=== PATIENT | female | born 1980 | race Caucasian/White ===

== ENCOUNTER 2020-05-19 19:29 | Emergency (ER) | payer BC ==
--- NOTE | 2020-05-19 20:58 | ER Document Report ---
ED Medical Screen (RME) - General Chief Complaint: Lower Abdominal Pain Stated Complaint: LOWER LEFT ABDOMINAL PAIN Time Seen by Provider: 05/19/20 20:50 Mode of Arrival: Ambulatory Information source: Patient Notes: HPI; 39-year-old female past medical history significant for ovarian cysts presents to the emergency room complaining of left lower pelvic pain for the past 3 to 4 days. Denies any nausea, no vomiting, no urinary symptoms, no vaginal discharge. Has been taking BC powder without relief. PE: Alert and oriented x3. Mild distress noted. Lungs: Clear to auscultation without rales, rhonchi, wheezes. Heart: Regular rate and rhythm without murmurs, rubs, gallops. I have greeted and performed a rapid initial assessment of this patient. A comprehensive ED assessment and evaluation of the patient, analysis of test results and completion of the medical decision making process will be conducted by additional ED providers. I have specifically instructed the patient or fa gentry members with the patient to immediately return to any nursing staff should anything change in the patient's condition or with their chief complaint. TRAVEL OUTSIDE OF THE [place] IN LAST 30 DAYS: No - Related Data Allergies/Adverse Reactions: adhesive tape Allergy (Verified 05/19/20 20:49) Past Medical History - General Last Menstrual Period: few days ago - Social History Frequency of alcohol use: Occasional Drug Abuse: Marijuana Past Surgical History: Reports: Hx Tubal Ligation Physical Exam - Vital signs Vitals: Temp Pulse Resp BP Pulse Ox 98.3 F 84 16 135/76 H 99 05/19/20 19:53 05/19/20 19:53 05/19/20 19:53 05/19/20 19:53 05/19/20 19:53 Course - Vital Signs Vital signs: Temp Pulse Resp BP Pulse Ox 98.3 F 84 16 135/76 H 99 05/19/20 19:53 05/19/20 19:53 05/19/20 19:53 05/19/20 19:53 05/19/20 19:53
[2020-05-19 21:46] LABS: ABSOLUTE BASOPHILS # (AUTO) 0.1 10^3/uL (0.0-0.2); ABSOLUTE EOSINOPHILS # (AUTO) 0.1 10^3/uL (0.0-0.6); ABSOLUTE LYMPHOCYTES (AUTO) 2.6 10^3/uL (0.5-4.7); ABSOLUTE MONOCYTES (AUTO) 0.7 10^3/uL (0.1-1.4); ABSOLUTE NEUT (AUTO) 5.2 10^3/uL (1.7-8.2); BASOPHILS % (AUTO) 0.8 % (0-2); EOSINOPHILS % (AUTO) 0.8 % (0-6); HEMATOCRIT 41.1 % (36.0-47.0); HEMOGLOBIN 13.8 g/dL (12.0-15.5); LYMPHOCYTES % (AUTO) 29.8 % (13-45); MEAN CORPUSCULAR HEMOGLOBIN 27.7 pg (27.0-33.4); MEAN CORPUSCULAR HGB CONC 33.7 g/dL (32.0-36.0); MEAN CORPUSCULAR VOLUME 82 fl (80-97); PLATELET COUNT 320 10^3/uL (150-450); RED BLOOD COUNT 4.99 10^6/uL (3.72-5.28); RED CELL DISTRIBUTION WIDTH 14.5 % (11.5-14.0); SEGMENTED NEUTROPHILS % (AUTO) 60.6 % (42-78); TOTAL CELLS COUNTED % (AUTO) 100 %; WHITE BLOOD COUNT 8.6 10^3/uL (4.0-10.5)
[2020-05-19 21:58] LABS: APPEARANCE,URINE CLOUDY; BILIRUBIN,URINE NEGATIVE (NEGATIVE); CALCIUM OXALATE CRYSTALS,URINE MANY /HPF; COLOR,URINE YELLOW; GLUCOSE, URINE NEGATIVE (NEGATIVE); KETONES,URINE NEGATIVE (NEGATIVE); LEUKOCYTE ESTERASE,URINE LARGE (NEGATIVE); NITRITE,URINE NEGATIVE (NEGATIVE); PROTEIN,URINE 100 mg/dL (NEGATIVE); URINE SPECIFIC GRAVITY 1.028
--- NOTE | 2020-05-19 22:11 | RADIOLOGY REPORT (SQ) ---
EXAM DESCRIPTION: US PELVIS TRANSVAGINAL COMPLETED DATE/TME: 05/19/2020 20:55 CLINICAL HISTORY: 39 years, Female, pelvic pain COMPARISON: None. TECHNIQUE: Emergent pelvic ultrasound LIMITATIONS: None. FINDINGS: The uterus measures 9.4 x 5.8 x 4.9 cm, the myometrium is homogenous. The endometrium measures 6 mm in thickness. Small amount of fluid in the endocervical canal. The right ovary measures 3.4 x 2.5 x 2.9 cm, the left 3.4 x 2.5 x 2.2 cm. Arterial and venous flow to each ovary. Simple 2.0 x 1.6 cm cyst of the right ovary, likely a dominant follicle. No solid adnexal mass. No free fluid IMPRESSION: Simple 2 cm right ovarian cyst/follicle. This does not require follow-up. Small amount of fluid in the endocervical canal. Recommendations for f/u of ovarian anechoic simple cyst, simple cyst with single thin <3 mm septation, or focal calcification in wall of cyst (1): Pre-menopause: <= 5 cm No follow-up imaging recommended >5 cm - <=7 cm US f/u annually >7 cm Consider MR w/IVC or surgical evaluation Post-menopause (>=1 year from last menstrual period): <=3 cm No follow-up imaging recommended >3 cm - <=7 cm US f/u annually >7 cm Consider MR w/IVC or surgical evaluation (1) Recommendations based on 2010 SRU Consensus Conference Statement on the Management of Asymptomatic Ovarian and Other Adnexal Cysts Imaged at US: Radiology. 2009;256(3):940-50 copyright 2011 [employer]- All Rights Reserved
[2020-05-19 22:16] LABS: ALBUMIN 4.8 g/dL (3.5-5.0); ALKALINE PHOSPHATASE 70 U/L (38-126); ANION GAP 9 (5-19); ASPARTATE AMINO TRANSFERASE 25 U/L (14-36); BILIRUBIN,DIRECT 0.3 mg/dL (0.0-0.4); BILIRUBIN,TOTAL 0.3 mg/dL (0.2-1.3); BLOOD UREA NITROGEN 15 mg/dL (7-20); CALCIUM 9.9 mg/dL (8.4-10.2); CARBON DIOXIDE 28 mmol/L (22-30); CHLORIDE 104 mmol/L (98-107); GLUCOSE 95 mg/dL (75-110); POTASSIUM 4.5 mmol/L (3.6-5.0); TOTAL PROTEIN 8.1 g/dL (6.3-8.2)
[2020-05-20] MEDS ORDERED: KETOROLAC TROMETHAMINE 60 MG/2 ML SDV IM ONE (02:31)
--- NOTE | 2020-05-20 02:37 | ER Document Report ---
ED General - General Chief Complaint: Lower Abdominal Pain Stated Complaint: LOWER LEFT ABDOMINAL PAIN Time Seen by Provider: 05/19/20 20:50 Mode of Arrival: Ambulatory Notes: 39-year-old female with past medical history of ovarian cysts presenting today with 3 to 4 days of intermittent right and left lower quadrant pain. Her last period ended 5 days ago. It lasted for 2 weeks. She has a history of a tubal ligation. Pain does radiate to her lower back. She last had this pain a month ago and it was consistent with cysts. Her current pain is a constant dullness with intermittent sharp and stabbing. This is the same pain she experiences when she has ovarian cysts. She denies any fevers, chills, nausea, vaginal discharge, dysuria. TRAVEL OUTSIDE OF THE [place] IN LAST 30 DAYS: No - Related Data Allergies/Adverse Reactions: adhesive tape Allergy (Verified 05/19/20 20:49) Past Medical History - General Information source: Patient Last Menstrual Period: few days ago - Social History Smoking Status: Current Every Day Smoker Frequency of alcohol use: Occasional Drug Abuse: Marijuana Family History: Reviewed & Not Pertinent Patient has homicidal ideation: No Past Surgical History: Reports: Hx Tubal Ligation Review of Systems - Review of Systems Constitutional: No symptoms reported EENT: No symptoms reported Cardiovascular: No symptoms reported Respiratory: No symptoms reported Gastrointestinal: See HPI Genitourinary: No symptoms reported Female Genitourinary: No symptoms reported Musculoskeletal: Back pain Skin: No symptoms reported Hematologic/Lymphatic: No symptoms reported Neurological/Psychological: No symptoms reported Physical Exam - Vital signs Vitals: Temp Pulse Resp BP Pulse Ox 98.3 F 84 16 135/76 H 99 05/19/20 19:53 05/19/20 19:53 05/19/20 19:53 05/19/20 19:53 05/19/20 19:53 Interpretation: Normal - Notes Notes: Adult General: GENERAL: Alert, interacts well. No acute distress HEAD: Normocephalic, atraumatic EYES: Pupils equal, round and reactive to light. Extraocular movements intact. ENT: Airway patent. Nares patent. NECK: Full range of motion. Supple. Trachea midline. No lymphadenopathy. LUNGS: Clear to auscultation bilaterally, no wheezes, rales, or rhonchi. No res piratory distress. Nontender chest wall. HEART: Regular rate and rhythm. No murmurs, rubs or gallops. ABDOMEN: Soft, tender in right lower quadrant and left lower quadrant. Nondistended. (-) [place] sign. Bowel sounds present in all 4 quadrants. No rebound, guarding or masses. GENITOURINARY: Deferred EXTREMITIES: Moves all 4 extremities spontaneously. No edema, normal radial and dorsal pedis pulses bilaterally. No cyanosis. BACK: (+) CVA tenderness on right side. No cervical, thoracic, lumbar midline tenderness. No saddle anesthesia, normal distal neurovascular exam. Moves all extremities with full range of motion. NEUROLOGICAL: Alert and oriented x3. Normal speech. Strength 5/ 5 in all extremities. PSYCH: Normal affect, normal mood. SKIN: Warm, dry, normal turgor. No rashes or lesions noted. Course - Re-evaluation Re-evalutation: 05/20/20 02:36 Patient's transvaginal ultrasound shows a simple 2 cm right ovarian cyst. No follow-up is recommended. She denies any pain with urination. Her urinalysis does show hematuria. I did discuss with patient that based on hematuria and (+) CVA tenderness I do have concerns for a kidney stone/pyelonephritis. Patient denies wanting to have additional imaging or evaluation at this time. She wants her pain treated and when she goes back to [place] she will have it further evaluated. I have ordered patient Toradol at this time. 05/20/20 03:22 Pain is no longer sharp, is now a dull irritant. Patient requesting additional information. Additional pain medication ordered. 05/20/20 07:44 Patient was reevaluated reports zero pain. I again asked patient if she wants further evaluation for kidney stone/kidney infection. Patient again denies. I discussed the risks of not having additional testing. Patient acknowledges. I will go ahead and order patient pain medication. Recommend that the patient follow-up with her primary care provider as soon as possible. I have also provided the patient an antibiotic as I do have concerns she may have an underlying pyelonephritis based on urinalysis and physical exam. I also recommend that she return to the emergency department for any worsening symptoms or the development of new symptoms. Patient acknowledges and verbalizes understanding of instructions and plan. All questions answered. - Vital Signs Vital signs: Temp Pulse Resp BP Pulse Ox 97.9 F 70 20 116/44 L 99 05/20/20 00:01 05/20/20 04:50 05/20/20 04:50 05/20/20 04:50 05/20/20 04:50 - Laboratory Result Diagrams: 05/19/20 21:31 05/19/20 21:31 Laboratory results interpreted by me: 05/19/20 05/19/20 21:31 21:31 RDW 14.5 H Urine Protein 100 H Urine Blood SMALL H Urine Urobilinogen 2.0 H Ur Leukocyte Esterase LARGE H Discharge - Discharge Clinical Impression: Ovarian cyst Qualifiers: Laterality: right Qualified Code(s): N83.201 - Unspecified ovarian cyst, right side Hematuria Qualifiers: Hematuria type: unspecified type Qualified Code(s): R31.9 - Hematuria, unspecified Urinary tract infection Qualifiers: Hematuria presence: with hematuria Condition: Stable Disposition: HOME, SELF-CARE Additional Instructions: Please follow-up with your primary care provider soon as possible for further evaluation. Please return the emergency department for worsening symptoms or development of new symptoms. Prescriptions: Ketorolac Tromethamine [Toradol 10 mg Tablet] 10 mg PO Q6HP PRN 3 Days #12 tablet PRN Reason: Cephalexin [Keflex] 500 mg PO BID 7 Days #14 capsule
[2020-05-20] MEDS ORDERED: MORPHINE SULFATE IR 15 MG TABLET PO ONE ×2 (03:23→03:24)
[2020-05-20 04:50] VITALS: BP 116/44
== END 2020-05-20 04:52 | disposition home or self-care (01) ==
LOC: ER 19:29
DX: N39.0 Urinary tract infection, site not specified (principal); R31.9 Hematuria, unspecified; N83.201 Unspecified ovarian cyst, right side; R10.32 Left lower quadrant pain; F17.200 Nicotine dependence, unspecified, uncomplicated; Z98.51 Tubal ligation status
CPT/HCPCS: 99285; 96372; 36415; 84703; 85025; 80053; 81001; 76830; 93976; J1885